=== PATIENT | female | born 1960 | race Caucasian/White ===

== ENCOUNTER → 2018-04-02 | Outpatient (CLI) | payer OTHER ==
[~2018-04-02] MED LIST: IBUP200C11 PO
== END | disposition home or self-care (01) ==
LOC: EEG 11:04
PROVIDERS: ATTEND Family Medicine Adult Medicine
DX: R56.9 Unspecified convulsions (principal)

== ENCOUNTER → 2018-04-09 | Outpatient (CLI) | END | disposition home or self-care (01) ==